=== PATIENT | female | born 1965 | race Caucasian/White ===

== ENCOUNTER → 2017-01-16 | Outpatient (CLI) | payer BC, OTHER | LOC: CAT 14:02 | DX: R05 Cough (principal); R61 Generalized hyperhidrosis; R68.83 Chills (without fever); R63.4 Abnormal weight loss ==

== ENCOUNTER → 2018-12-29 | Outpatient (CLI) | payer OTHER ==
--- NOTE | ~2018-12-29 | MCT ---
[facility] [place] [address] METHACHOLINE CHALLENGE TEST Name: DOMENIC RUFFIN Room #: [facility] [place]#: [id number] ������������������ Admission: 12/29/18 ������������������ Attend Phys: Devonte Kruse MD Discharge: ������������������ Date of : 61 Report #: [id number] THIS REPORT FOR: //name// COPIES FOR: AGE:������ 53 SEX/RACE:� F/C Height: 63 in Exam Date: 12/29/18 Weight: 160 lbs BTPS: X >> PRE BRONCHODILATOR: PREDICTED BEST %PRED FORCED VITAL CAPACITY (FRC) 2.98 L 3.14 LPM 105 % FORCED EXP VOL/SEC (FEV1) 2.45 L 2.55 FEV/FVC 104 % MAX MID-EXP FLOW (FEF 25-75) 2.69 L/SEC 2.83 L/SEC 105 % PEAK EXP FLOW RATE (FEF MAX) 5.73 L/MIN 5.47 L/MIN MED-VC RATIO (FEF 50/FEF 50) .09 Baseline: Phenol Saline Level 1: 0.025 mg/ml BEST %PRED %CHANGE BEST %PRED %CHANGE FVC 3.14 L 2.98 % -0 % FVC 3.17 L 106 % 1 % FEV1 2.50 L 2.45 % -2 % FEV1 2.54 L 104 % 2 % Level 2: 0.25 mg/ml Level 3: 2.5 mg/ml BEST %PRED %CHANGE BEST %PRED %CHANGE FVC 3.09 L 104 % -2 % FVC 3.18 L 107 % 1 % FEV1 2.46 L 101 % -1 % FEV1 2.54 L 104 % 2 % . Level 4: 10 mg/ml Level 5: 25 mg/ml BEST %PRED %CHANGE BEST %PRED %CHANGE FVC 3.15 L 106 % 0 % FVC 3.16 L 106 % 1 % FEV1 2.46 L 101 % -1 % FEV1 2.47 L 101 % -1 % Post Bronchodilator: 1st Treatment Post Bronchodilator: 2nd Treatment BEST %PRED %CHANGE BEST %PRED %CHANGE FVC 3.12 L 105 % -0 % FVC L % % FEV1 2.18 L 101 % -1 % FEV1 L % % Post Bronchodilator: 3rd Treatment BEST %PRED %CHANGE FVC L % % [address] [address] METHACHOLINE CHALLENGE TEST Name: DOMENIC RUFFIN Room #: [facility] Bon[place]#: [id number] ������������������ Admission: 12/29/18 ������������������ Attend Phys: Devonte Kruse MD Discharge: ������������������ Date of : 61 Report #: [id number] FEV1 L % % >> INTERPRETATION: CC: Devonte Roman DATE OF SERVICE: 12/29/2018 METHACHOLINE CHALLENGE TEST Increasing doses of methacholine were used per protocol for methacholine challenge test. Baseline FEV1 was 2.55 liters (104%). Maximum decline ended with a 2.47 liter FEV1 (101%). No significant response to methacholine challenge. IMPRESSION: Negative methacholine challenge test. ��������������������������������������������� ���������������������������������������� By: ��������������������������������������������� Devonte Kruse MD /nt
== END ==
LOC: PUL 10:14
DX: J45.909 Unspecified asthma, uncomplicated (principal)

== ENCOUNTER → 2020-06-12 | Outpatient (CLI) | payer OTHER | LOC: RAD 07:59 | PROVIDERS: ATTEND Pediatrics | DX: R06.00 Dyspnea, unspecified (principal) ==